=== PATIENT | female | born 1950 | race Caucasian/White ===

== ENCOUNTER → 2023-10-29 11:02 | Outpatient (REF) | payer MEDICARE, OTHER, SELFPAY | LOC: WDC 11:02 | PROVIDERS: ATTENDING PHYSICIAN Physician Assistant Medical | DX: Z12.31 Encounter for screening mammogram for malignant neoplasm of breast (principal) | CPT/HCPCS: 77063; 77067 ==

== ENCOUNTER → 2024-02-02 10:55 | Outpatient (REF) | payer MEDICARE, OTHER, SELFPAY ==
[2024-02-02 13:14] LABS: ALT (SGPT) 24 U/L (0-35); AST (SGOT) 29 U/L (14-36); Albumin 4.8 g/dl (3.5-5.0); Alkaline Phosphatase 110 U/L (38-126); Blood Urea Nitrogen 15 mg/dl (7-17); Calcium 10.3 mg/dl (8.4-10.2); Carbon Dioxide 26 mmol/L (22-30); Chloride 103 mmol/L (98-107); Glucose 82 mg/dl (70-99); HDL Cholesterol 51 mg/dl; LDL Cholesterol, Calculated 162 mg/dl; Potassium 4.6 mmol/L (3.5-5.1); Sodium 138 mmol/L (135-145); Total Bilirubin 0.6 mg/dl (0.2-1.3); Total Cholesterol 239 mg/dl (50-199); Total Protein 6.8 g/dl (6.3-8.2); Triglyceride 130 mg/dl (10-149); Very Low Density Lipoprotein 26 mg/dl (0-30); eGFR > 60.00
[2024-02-02 13:41] LABS: TSH 0.98 uIU/ml (0.47-4.68)
[2024-02-02 14:16] LABS: Folate > 20.0 ng/ml (2.76-20); Vitamin B12 > 1000 pg/ml (239-931)
== END ==
LOC: RCS 10:55
PROVIDERS: ATTENDING PHYSICIAN Internal Medicine; FAMILY PHYSICIAN Physician Assistant Medical
DX: E78.2 Mixed hyperlipidemia (principal); I51.7 Cardiomegaly; I10 Essential (primary) hypertension; F33.41 Major depressive disorder, recurrent, in partial remission; F41.9 Anxiety disorder, unspecified; R74.8 Abnormal levels of other serum enzymes; F41.8 Other specified anxiety disorders; D51.8 Other vitamin B12 deficiency anemias
CPT/HCPCS: 36415; 80053; 80061; 82607; 82746; 84443; 93306

== ENCOUNTER 2024-04-10 09:09 | Emergency (ER) | payer MEDICARE, OTHER, SELFPAY ==
[2024-04-10 09:11] VITALS: BP 114/65
--- NOTE | 2024-04-10 09:52 | ED.GENMED ---
History of Present Illness
<Bharti Damico MD, Resident - Last Filed: 04/10/24 12:42>
General
Chief Complaint: Head Injury
Source: patient
Exam Limitations: none
Time Seen by Provider: 04/10/24 09:20
History of Present Illness
History of Present Illness:
24-year-old female with past medical history significant for osteoarthritis, bilateral hip and left knee replacement presents to the hospital s/p mechanical fall. Her fall occurred in the morning around 6:30 AM when she was trying to grab a towel
from her closet she fell down to her left side and hit her head and left hip to the ground. She was aware of this whole episode did not lose consciousness and had no bowel or bladder incontinence. She had a laceration wound of on the left frontal
area of her scalp which was bleeding and her assisted her to urgent care where she got a wound dressing placed and she was sent to the ER. She has some baseline dizziness that started few weeks ago but did not change acutely with her fall.
She was able to get up from the floor and walk to the car and got to urgent care. She does not have difficulty weightbearing or any restriction in range of movements.
She denies having any acute onset headaches, nausea, lightheadedness, blurring of vision, vomitings, neck pain or stiffness, rib pain, change in her baseline hip pain, back pain, neck pain.
She does not recall her last tetanus shot.
If applicable-neuro sx onset
Onset of symptoms known: No
Time pt last seen normal is known: Yes
Date last time pt seen normal: 04/10/24
Time last time pt seen normal: 09:56
Past History
<Bharti Damico MD, Resident - Last Filed: 04/10/24 12:42>
Past History
ED Past Medical History: None
ED Past Surgical History: Gynecological and Orthopedic (Left RD)
Patient has exhibited threatening behavior?: No
Social History
Tobacco: Non-smoker
Alcohol: None
Drug: None
Personal:
Living: with family
Employment: Retired
Family History
Family History: Other
Review of Systems
<Bharti Damico MD, Resident - Last Filed: 04/10/24 12:42>
Review of Systems
Allergies reviewed?: Yes
Constitutional: Reports no symptoms
EENT: Reports no symptoms
Respiratory: Reports no symptoms
Cardiac: Reports no symptoms
ABD/GI: Reports no symptoms
: Reports no symptoms
Musculoskeletal: Reports joint pain and muscle pain
Skin: Reports no symptoms
Neurological: Reports dizzy
Phy Exam
<Bharti Damico MD, Resident - Last Filed: 04/10/24 12:42>
General Physical Exam
General Presentation: well appearing
General Skin: warm
General Habitus: normal
General Mental: alert
General Hydration: appears well hydrated
ENT Exam
ENT Exam: EOMI and TM's normal
Eye Exam
Eye Exam: PERRL and EOMI
Cardiovascular Exam
Cardiovascular Exam: regular rate/rhythm, no edema and no murmur
Heart Sounds: normal
Pulmonary Exam
Pulmonary Exam: lungs clear, no respiratory distress, no rales, chest non tender, no crackles, no rhonchi and other (no tenderness to palpation on ribs b/l)
Gastrointestinal Exam
Gastrointestinal Exam: normal bowel sounds, non tender, soft, no organomegaly and non distended
Neurological Exam
Neurological Exam: alert, oriented x3, no motor deficits, normal reflexs, no sensory deficits, speech normal, cerebellum intact and normal gait
Reflexes
Reflexes: +2: Left patellar and +2: Right patellar
Musculoskeletal Exam
Musculoskeletal Exam: full ROM, no edema and other (No spinal or paraspinal tenderness, no range of motion limitation in the neck, range of motion in hips within normal limits, no tenderness on palpation over the joints, no weightbearing difficulty.)
Skin Exam
Skin Exam: normal color and other (2 into 2 cm laceration noted on left frontal area of the scalp.)
Course
<Bharti Damico MD, Resident - Last Filed: 04/10/24 12:42>
Orders/Labs/Results
Orders:
Orders
04/10/24 09:39
CT Head W/o Iv Contrast Urgent
Comment:
Reason For Exam: S/p mechanical fall, head injury
04/10/24 09:48
Tetanus/Diphth/Acelpertussis [Adacel] 0.5 ml IM .ONCE ONE
04/10/24 10:08
Complete Blood Count/With Diff Urgent
Comprehensive Metabolic Panel Urgent
Abnormal Lab Results
04/10/24
10:08
RBC 4.03 L 10^6/uL
(4.20-5.40)
MCH 31.5 H pg
(27.0-31.0)
MPV 10.5 H fL
(7.4-10.4)
Absolute Neuts (auto) 7.5 H 10^3/uL
(1.4-6.5)
Absolute Monos (auto) 0.7 H 10^3/uL
(0.1-0.6)
Neutrophils % 77.4 H %
(42.2-75.2)
Lymphocytes % 14.1 L %
(20.5-51.1)
BUN 22 H mg/dl
(7-17)
Total Protein 6.2 L g/dl
(6.3-8.2)
04/10/24 10:08
04/10/24 10:08
Vital Signs
Initial and Last Documented VS:
Initial Vital Signs
Temp Pulse Resp BP Pulse Ox
97.8 F 66 18 114/65 99
04/10/24 09:11 04/10/24 09:11 04/10/24 09:11 04/10/24 09:11 04/10/24 09:11
Last Documented Vital Signs
Temp Pulse Resp BP Pulse Ox
97.8 F 64 11 129/64 96
04/10/24 09:11 04/10/24 12:16 04/10/24 10:04 04/10/24 12:16 04/10/24 10:04
Comment
Comment:
Her head CT scan has no acute intracranial abnormality but showed mild to moderate cerebral atrophy
Due to her unknown last tetanus vaccine status, patient was given a single dose of tetanus.
<Yan Diallo MD - Last Filed: 04/10/24 12:37>
Orders/Labs/Results
Orders:
Orders
04/10/24 09:39
CT Head W/o Iv Contrast Urgent
Comment:
Reason For Exam: S/p mechanical fall, head injury
04/10/24 09:48
Tetanus/Diphth/Acelpertussis [Adacel] 0.5 ml IM .ONCE ONE
04/10/24 10:08
Complete Blood Count/With Diff Urgent
Comprehensive Metabolic Panel Urgent
Abnormal Lab Results
04/10/24
10:08
RBC 4.03 L 10^6/uL
(4.20-5.40)
MCH 31.5 H pg
(27.0-31.0)
MPV 10.5 H fL
(7.4-10.4)
Absolute Neuts (auto) 7.5 H 10^3/uL
(1.4-6.5)
Absolute Monos (auto) 0.7 H 10^3/uL
(0.1-0.6)
Neutrophils % 77.4 H %
(42.2-75.2)
Lymphocytes % 14.1 L %
(20.5-51.1)
BUN 22 H mg/dl
(7-17)
Total Protein 6.2 L g/dl
(6.3-8.2)
04/10/24 10:08
04/10/24 10:08
Vital Signs
Initial and Last Documented VS:
Initial Vital Signs
Temp Pulse Resp BP Pulse Ox
97.8 F 66 18 114/65 99
04/10/24 09:11 04/10/24 09:11 04/10/24 09:11 04/10/24 09:11 04/10/24 09:11
Last Documented Vital Signs
Temp Pulse Resp BP Pulse Ox
97.8 F 64 11 129/64 96
04/10/24 09:11 04/10/24 12:16 04/10/24 10:04 04/10/24 12:16 04/10/24 10:04
Procedures
<Bharti Damico MD, Resident - Last Filed: 04/10/24 12:42>
Laceration Closure
Left Head:
Status of Wound: clean
Size of Wound in cm: 1.5
Description of Wound Edges: ragged
Preparation: cleaned with saline and cleaned with Betadine
Anesthesia: 2% Lidocaine with epi
Revision/Debridement: routine- no revision
Wound exploration: explored to base- no FB
Type of Closure: single layer closure
Skin Closure Material: 5-0 nylon
Number of sutures: 3
<Bharti Damico MD, Resident - Last Filed: 04/10/24 12:42>
MDM/Problems Addressed
Differential Diagnosis Includes:
Laceration wound.
Acute Exacerbation and/or Progression of Chronic Illness:
None.
<Bharti Damico MD, Resident - Last Filed: 04/10/24 12:42>
*Critical Care Note
Total Time (30-74mins, 75-104mins- exclusive of procedures): Not Applicable
<Bharti Damico MD, Resident - Last Filed: 04/10/24 12:42>
Comment
Comment:
Minimal
ED Attending Note
<Bharti Damico MD, Resident - Last Filed: 04/10/24 12:42>
-
Portions of this chart may have been created with voice recognition software.� Occasional wrong word or��sound alike� substitutions may have occurred due to the inherent limitations of voice recognition software.
<Yan Diallo MD - Last Filed: 04/10/24 12:37>
ED Attending Note
Patient seen and examined by attending physician: Yes
I performed a history and physical exam of patient and discussed management with resident, I reviewed resident's note and agree with documented findings and plan of care.: Yes
ED Attending Note:
74-year-old female tripped and fell hitting the left side of her head on the floor. No LOC. No syncope. As tetanus is unknown. Does not have increased hip discomfort at this time. Hip pain is chronic. No pain with ambulation. No nausea
vomiting no neck pain acutely.
TRAUMA EXAM:
VITAL SIGNS: Vital signs reviewed, cooperative
DISTRESS: No active disease
EYES: Pupils reactive, no orbital trauma
NOSE: No deformity or epistaxis
FACE AND SCALP: 1.5 cm laceration to the left lateral forehead. Mild hematoma.
NECK: Supple nontender
BACK: Back nontender, pelvis stable to compression
RESPIRATORY: No distress, breath sounds normal, no tender chest wall
CARDIAC: No murmur, pulses equal and strong
ABDOMEN: Soft nontender bowel sounds normal
SKIN: Skin intact no bleeding, color normal
EXTREMITIES: Nontender. No pain with hip rotation
NEUROLOGICAL: Alert, oriented, no motor deficits
PSYCH: Mood affect normal
Impression is head injury. CT scan for completeness. No indications for cervical spine testing. Totally nontender. Neurologic exam is normal. Tetanus shot. Wound care and laceration repair. Hip is stable and nontender. No indication for
extremity radiologic testing
CT scans are unremarkable. Patient is medically stable. Suturing was done by the resident with my supervision. Sterilely sutured #3 stitches.
Discharge Plan
Departure
Patient Disposition: Home (Routine Discharge)
Date of Disposition: 04/10/24
Time of Disposition: 12:38
Patient with high blood pressure during this ER visit?: No
Discharge Problem:
Laceration of head
Instructions: Head Injury in Adults (DC), Laceration Repair With Stitches (DC)
Prescriptions:
No Action
lorazepam 1 MG tablet
1 - 2 mg PO BID PRN (Reason: anxiety)
Patient Comments:
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
venlafaxine [Effexor XR] 75 mg Capsule,Extended Release 24hr
75 mg PO DAILY
Theragen Tablet
1 tab PO DAILY
acetaminophen [Tylenol Arthritis] 650 mg Tablet Extended Release
1,300 mg PO Q8H PRN (Reason: mild pain)
lisinopril 5 mg Tablet
5 mg PO DAILY
melatonin 5 mg Tablet
5 mg PO HS PRN (Reason: sleep)
citalopram [Celexa] 10 mg Tablet
10 mg PO DAILY
Referrals:
Edna Patel PA-C [Family Provider] -
Activity Restrictions/Additional Instructions:
Follow-up with your primary care in 7 to 10 days for suture removal.
Interventions
Interventions:
*Risk Screen - Suicide Last Done: 04/10/24 09:13
*General Assessment Last Done: 04/10/24 09:13
*Neglect/Abuse Screening Last Done: 04/10/24 09:13
*ED COVID-19 Vaccine History Last Done: 04/10/24 10:10
ED- Neurological Assessment Last Done: 04/10/24 11:12
ED-Skin Assessment Last Done: 04/10/24 12:17
Discharge Date and Time
Print Language: ESTONIAN
[2024-04-10 10:00] VITALS: BP 124/65
[2024-04-10 10:09] VITALS: BMI 23.1
[2024-04-10 10:31] LABS: % Basophils 0.1 % (0-2); % Eosinophils 0.9 % (0-6); % Immature Granulocytes 0.4 % (0-0.5); % Lymphocytes 14.1 % (20.5-51.1); % Monocytes 7.1 % (1.7-9.3); % Neutrophils 77.4 % (42.2-75.2); Absolute Eosinophils 0.1 10^3/uL (0-0.7); Absolute Lymphocytes 1.4 10^3/uL (1.2-3.4); Absolute Monocytes 0.7 10^3/uL (0.1-0.6); Absolute Neutrophils 7.5 10^3/uL (1.4-6.5); Hematocrit 37.5 % (37.0-47.0); Hemoglobin 12.7 g/dL (12.0-16.0); Mean Corp Hgb Conc. 33.9 g/dL (33.0-37.0); Mean Corpuscular Hgb 31.5 pg (27.0-31.0); Mean Corpuscular Volume 93.1 fL (81.0-99.0); Mean Platelet Volume 10.5 fL (7.4-10.4); Nucleated Red Blood Cells % 0 %; Platelet Count 246 10^3/uL (130-400); Red Blood Cell Count 4.03 10^6/uL (4.20-5.40); Red Cell Dist. Width 14.3 % (11.5-14.5); White Blood Cell Count 9.7 10^3/uL (4.8-10.8)
[2024-04-10 10:42] LABS: ALT (SGPT) 22 U/L (0-35); AST (SGOT) 25 U/L (14-36); Albumin 4.3 g/dl (3.5-5.0); Alkaline Phosphatase 81 U/L (38-126); Blood Urea Nitrogen 22 mg/dl (7-17); Calcium 9.8 mg/dl (8.4-10.2); Carbon Dioxide 27 mmol/L (22-30); Chloride 105 mmol/L (98-107); Estimated Creatinine Clearance 57 ml/min; Glucose 93 mg/dl (70-99); Potassium 4.8 mmol/L (3.5-5.1); Sodium 141 mmol/L (135-145); Total Bilirubin 0.4 mg/dl (0.2-1.3); Total Protein 6.2 g/dl (6.3-8.2); eGFR > 60.00
[2024-04-10 12:16] VITALS: BP 129/64
[2024-04-10] MEDS: ADACEL 0.5 ML IM (12:45)
[2024-04-10 13:45] VITALS: BP 129/64
== END 2024-04-10 13:45 | disposition home or self-care (01) ==
LOC: EMR 09:09
PROVIDERS: Student in an Organized Health Care Education/Training Program; EMERGENCY PHYSICIAN Emergency Medicine; FAMILY PHYSICIAN Physician Assistant Medical
DX: S01.01XA Laceration without foreign body of scalp, initial encounter (principal); W18.39XA Other fall on same level, initial encounter; Z23 Encounter for immunization
CPT/HCPCS: 12001; 90471; 99284; 70450; 80053; 85025

== ENCOUNTER 2024-07-21 18:45 | Emergency (ER) | payer MEDICARE, OTHER, SELFPAY ==
[2024-07-21 18:52] VITALS: BP 141/72
[2024-07-21 19:26] LABS: % Basophils 0.3 % (0-2); % Eosinophils 2.2 % (0-6); % Immature Granulocytes 0.3 % (0-0.5); % Lymphocytes 20.4 % (20.5-51.1); % Monocytes 9.4 % (1.7-9.3); % Neutrophils 67.4 % (42.2-75.2); Absolute Eosinophils 0.2 10^3/uL (0-0.7); Absolute Lymphocytes 1.5 10^3/uL (1.2-3.4); Absolute Monocytes 0.7 10^3/uL (0.1-0.6); Absolute Neutrophils 4.9 10^3/uL (1.4-6.5); Hematocrit 37.2 % (37.0-47.0); Hemoglobin 12.4 g/dL (12.0-16.0); Mean Corp Hgb Conc. 33.3 g/dL (33.0-37.0); Mean Corpuscular Hgb 32.2 pg (27.0-31.0); Mean Corpuscular Volume 96.6 fL (81.0-99.0); Mean Platelet Volume 10.1 fL (7.4-10.4); Nucleated Red Blood Cells % 0 %; Platelet Count 310 10^3/uL (130-400); Red Blood Cell Count 3.85 10^6/uL (4.20-5.40); White Blood Cell Count 7.2 10^3/uL (4.8-10.8)
[2024-07-21 19:29] LABS: ALT (SGPT) 24 U/L (0-35); AST (SGOT) 27 U/L (14-36); Albumin 4.7 g/dl (3.5-5.0); Alkaline Phosphatase 169 U/L (38-126); Blood Urea Nitrogen 21 mg/dl (7-17); Calcium 10.5 mg/dl (8.4-10.2); Carbon Dioxide 28 mmol/L (22-30); Chloride 100 mmol/L (98-107); Glucose 89 mg/dl (70-99); Potassium 4.7 mmol/L (3.5-5.1); Sodium 136 mmol/L (135-145); Total Bilirubin 0.6 mg/dl (0.2-1.3); Total Protein 6.9 g/dl (6.3-8.2); eGFR > 60.00
== END 2024-07-21 22:04 ==
LOC: EMR 18:45
PROVIDERS: EMERGENCY PHYSICIAN Emergency Medicine
DX: S01.81XA Laceration without foreign body of other part of head, initial encounter (principal); W19.XXXA Unspecified fall, initial encounter; Z53.21 Procedure and treatment not carried out due to patient leaving prior to being seen by health care provider
CPT/HCPCS: 70450; 80053; 85025

== ENCOUNTER → 2024-08-02 13:17 | Outpatient (REF) | payer MEDICARE, OTHER, SELFPAY | LOC: RAD 13:17 | PROVIDERS: ATTENDING PHYSICIAN Physician Assistant Medical | DX: R42 Dizziness and giddiness (principal); R09.89 Other specified symptoms and signs involving the circulatory and respiratory systems | CPT/HCPCS: 93880 ==

== ENCOUNTER → 2024-08-09 07:33 | Outpatient (REF) | payer MEDICARE, OTHER, SELFPAY ==
[2024-08-09 08:09] LABS: % Basophils 0.5 % (0-2); % Eosinophils 1.7 % (0-6); % Immature Granulocytes 0.2 % (0-0.5); % Lymphocytes 28.9 % (20.5-51.1); % Monocytes 7.9 % (1.7-9.3); % Neutrophils 60.8 % (42.2-75.2); Absolute Eosinophils 0.1 10^3/uL (0-0.7); Absolute Lymphocytes 1.7 10^3/uL (1.2-3.4); Absolute Monocytes 0.5 10^3/uL (0.1-0.6); Absolute Neutrophils 3.6 10^3/uL (1.4-6.5); Hematocrit 40.5 % (37.0-47.0); Hemoglobin 13.5 g/dL (12.0-16.0); Mean Corp Hgb Conc. 33.3 g/dL (33.0-37.0); Mean Corpuscular Hgb 32.3 pg (27.0-31.0); Mean Corpuscular Volume 96.9 fL (81.0-99.0); Mean Platelet Volume 10.7 fL (7.4-10.4); Nucleated Red Blood Cells % 0 %; Platelet Count 274 10^3/uL (130-400); Red Blood Cell Count 4.18 10^6/uL (4.20-5.40); Red Cell Dist. Width 14.1 % (11.5-14.5); White Blood Cell Count 5.9 10^3/uL (4.8-10.8)
[2024-08-09 08:28] LABS: ALT (SGPT) 27 U/L (0-35); AST (SGOT) 28 U/L (14-36); Albumin 4.5 g/dl (3.5-5.0); Alkaline Phosphatase 115 U/L (38-126); Blood Urea Nitrogen 13 mg/dl (7-17); Calcium 10.1 mg/dl (8.4-10.2); Carbon Dioxide 31 mmol/L (22-30); Chloride 104 mmol/L (98-107); Glucose 88 mg/dl (70-99); Potassium 4.4 mmol/L (3.5-5.1); Sodium 140 mmol/L (135-145); Total Bilirubin 0.6 mg/dl (0.2-1.3); Total Protein 6.8 g/dl (6.3-8.2); eGFR > 60.00
[2024-08-09 10:43] LABS: TSH 2.28 uIU/ml (0.47-4.68)
[2024-08-09 11:18] LABS: Folate > 20.0 ng/ml (2.76-20); Vitamin B12 > 1000 pg/ml (239-931)
[2024-08-10 15:11] LABS: EBV-EA (D) Ab IgG <5.0 U/mL (0.0-10.9); EBV-VCA IgG Antibodies >750.0 U/mL (0.0-21.9); EBV-VCA IgM Antibodies <10.0 U/mL (0.0-43.9)
[2024-08-11 03:01] LABS: ANA, IgG Reflex to HEp-2 None Detected (None Detected)
== END ==
LOC: REG 07:33
PROVIDERS: ATTENDING PHYSICIAN Physician Assistant Medical
DX: R42 Dizziness and giddiness (principal); R41.0 Disorientation, unspecified; R53.83 Other fatigue; R53.82 Chronic fatigue, unspecified; R26.89 Other abnormalities of gait and mobility; I10 Essential (primary) hypertension; R68.2 Dry mouth, unspecified; E78.2 Mixed hyperlipidemia
CPT/HCPCS: 36415; 80053; 82607; 82746; 84443; 85025; 86038; 86663; 86664; 86665

== ENCOUNTER → 2024-09-04 13:09 | Outpatient (REF) | payer MEDICARE, OTHER, SELFPAY | LOC: MRI 3T 13:09 | PROVIDERS: ATTENDING PHYSICIAN Physician Assistant Medical | DX: R42 Dizziness and giddiness (principal); R53.82 Chronic fatigue, unspecified; R26.89 Other abnormalities of gait and mobility; R12 Heartburn | CPT/HCPCS: 70553; A9575 ==